=== PATIENT | female | born 1980 | race Caucasian/White ===

== ENCOUNTER 2021-11-22 05:42 | Emergency (ER) | payer MEDICAID ==
[2021-11-22] MEDS ORDERED: Bacitracin Oint 1 GM U/D Packet TOP ONE (06:05)
== END 2021-11-22 06:37 | disposition home or self-care (01) ==
LOC: JP.ED 05:42
DX: S81.811A Laceration without foreign body, right lower leg, initial encounter (principal); I83.891 Varicose veins of right lower extremity with other complications
CPT/HCPCS: 12001; 99283-25

== ENCOUNTER 2024-03-02 21:19 | Emergency (ER) | payer SELFPAY ==
[2024-03-02] MEDS ORDERED: Sodium Chloride 0.9% 10 ML Syringe FLUSH PRN (21:40)
[2024-03-02] MEDS ORDERED: Morphine 4 MG/ML Syringe IVPUSH PRN (21:40)
[2024-03-02] MEDS: Aspirin 81 MG Tab.Chew PO ONE (21:55)
[2024-03-02 21:56] LABS: BASOPHILS ABSOLUTE AUTO 0.06 K/uL (0.00-0.10); BASOPHILS PERCENT AUTO 0.6 % (0.1-1.3); EOSINOPHILS ABSOLUTE AUTO 0.23 K/uL (0.00-0.40); EOSINOPHILS PERCENT AUTO 2.3 % (0.0-5.4); HEMATOCRIT 38.7 % (34.3-46.0); HEMOGLOBIN 13.5 g/dL (11.2-15.5); IMMATURE GRAN ABSOLUTE AUTO 0.02 K/uL (0.00-0.23); IMMATURE GRAN PERCENT AUTO 0.2 % (0.0-0.7); LYMPHOCYTES ABSOLUTE AUTO 2.08 K/uL (0.8-3.3); LYMPHOCYTES PERCENT AUTO 20.4 % (11.4-47.7); MEAN CORPUSCULAR HGB CONC 34.9 g/dL (31.6-35.5); MONOCYTES ABSOLUTE AUTO 0.66 K/uL (0.20-0.90); MONOCYTES PERCENT AUTO 6.5 % (3.3-12.6); NEUTROPHILS ABSOLUTE AUTO 7.15 K/uL (1.0-7.6); PLATELET COUNT,PLT 295 K/uL (130-375); WHITE BLOOD CELL COUNT,WBC 10.2 K/uL (3.2-11.0)
[2024-03-02] MEDS: Nitroglycerin 0.4 MG Tab.SL SL PRN (21:56)
[2024-03-02 22:18] LABS: A/G RATIO 0.9 (1.2-2.2); ALANINE AMINOTRANSFERASE,ALT 24 U/L (12-78); ALBUMIN 3.5 g/dL (3.4-5.0); ALKALINE PHOSPHATASE 96 U/L (46-116); ASPARTATE AMNIOTRANSFERASE,AST 10 U/L (15-37); BILIRUBIN TOTAL 0.2 mg/dL (0.2-1.0); BLOOD UREA NITROGEN,BUN 11 mg/dL (7-18); CALCIUM 8.2 mg/dL (8.5-10.1); CARBON DIOXIDE,CO2 26 mmol/L (21-32); CHLORIDE,CL 103 mmol/L (100-108); EST CRCL DRUG DOSING (CG) 56.78 mL/min; ESTIMATED GFR 71 mL/min (>60); GLUCOSE RANDOM 123 mg/dL (74-106); POTASSIUM,K 3.6 mmol/L (3.6-5.2); PROTEIN TOTAL,TP 7.6 g/dL (6.4-8.2); SODIUM,NA 138 mmol/L (140-148)
[2024-03-02 22:19] LABS: ANION GAP 12.6 mmol/L (5.0-14.0); TROPONIN I HIGH SENSITIVITY < 4.0 pg/mL (<=60.3)
== END 2024-03-02 23:01 | disposition home or self-care (01) ==
LOC: JP.ED 21:19
DX: R07.89 Other chest pain (principal); E66.9 Obesity, unspecified; Z68.42 Body mass index [BMI] 45.0-49.9, adult
CPT/HCPCS: 36415; 71045; 80053; 84484; 85025; 93005; 99285; A9270